=== PATIENT | female | born 1995 | race Caucasian/White ===

== ENCOUNTER 2017-03-30 05:33 | Emergency (ER) | payer OTHER ==
[2017-03-30 06:20] LABS: BASOPHIL 0.2 % (0-2); EOSINOPHIL 2.2 % (0-5); HCT 44.6 % (37.0-47.0); HGB 15.3 g/dl (12.5-16.0); LYMPHOCYTE 20.8 % (15-48); MCH 30.9 pg (25.0-31.0); MCHC 34.3 g/dL (32.0-36.0); MCV 90.1 fL (78.0-100.0); MONOCYTE 5.7 % (0-12); MPV 10.2 fL (6.0-9.5); NEUTROPHIL 71.1 % (41-80); PLT 325 K/uL (150-400); RBC 4.95 M/uL (4.20-5.40)
[2017-03-30 06:40] LABS: ALBUMIN 4.6 g/dL (3.5-5.0); BILIRUBIN - TOTAL 0.3 mg/dL (0.1-1.0); CREATININE 0.7 mg/dL (0.5-1.0); GLOBULIN (CALCULATION) 2.4 g/dL (2.2-4.2); POTASSIUM 3.8 mmol/L (3.5-5.1)
== END 2017-03-30 06:55 | disposition home or self-care (01) ==
LOC: FER 05:33
PROVIDERS: Emergency Medicine
DX: O03.9 Complete or unspecified spontaneous abortion without complication (principal); O99.331 Smoking (tobacco) complicating pregnancy, first trimester; Z3A.01 Less than 8 weeks gestation of pregnancy
CPT/HCPCS: 36415; 80053; 84702; 84703; 85025; 86900; 86901; 99284

== ENCOUNTER 2017-04-01 07:27 | Emergency (ER) | payer OTHER ==
[2017-04-01 08:17] LABS: BILIRUBIN NEGATIVE (NEGATIVE); BLOOD 3+ Ery/uL (NEGATIVE); CLARITY HAZY (CLEAR); COLOR YELLOW (YELLOW); GLUCOSE (U) NORMAL (NORMAL); KETONE (U) NEGATIVE (NEGATIVE); LEUKOCYTES NEGATIVE Leu/uL (NEGATIVE); NITRITE NEGATIVE (NEGATIVE); PROTEIN 1+ mg/dL (NEGATIVE); SPECIFIC GRAVITY 1.015 (1.001-1.030); UROBILINOGEN 0.2 mg/dL (0.2-1.0); pH 6.5 (5.0-9.0)
[2017-04-01 08:19] LABS: AMORPHOUS URATES CRYSTALS TRACE; BACTERIA TRACE; URINARY RBC RARE; URINARY WBC RARE
[2017-04-01 08:27] LABS: BASOPHIL 0.1 % (0-2); EOSINOPHIL 3.8 % (0-5); HCT 43.6 % (37.0-47.0); HGB 15.1 g/dl (12.5-16.0); LYMPHOCYTE 28.6 % (15-48); MCH 31.5 pg (25.0-31.0); MCHC 34.6 g/dL (32.0-36.0); MONOCYTE 6.3 % (0-12); MPV 10.3 fL (6.0-9.5); NEUTROPHIL 61.2 % (41-80); PLT 317 K/uL (150-400); RBC 4.79 M/uL (4.20-5.40); WBC 9.3 K/uL (4.0-10.5)
[2017-04-01 08:47] LABS: ALBUMIN 4.2 g/dL (3.5-5.0); BILIRUBIN - TOTAL 0.2 mg/dL (0.1-1.0); CREATININE 0.6 mg/dL (0.5-1.0); GLOBULIN (CALCULATION) 2.3 g/dL (2.2-4.2); POTASSIUM 4.1 mmol/L (3.5-5.1); TOTAL PROTEIN 6.5 g/dL (6.4-8.3)
== END 2017-04-01 09:03 | disposition home or self-care (01) ==
LOC: FER 07:27
PROVIDERS: Emergency Medicine
DX: O03.9 Complete or unspecified spontaneous abortion without complication (principal); Z3A.01 Less than 8 weeks gestation of pregnancy
CPT/HCPCS: 36415; 80053; 81001; 84702; 85025; 99284

== ENCOUNTER 2021-08-20 06:05 | Emergency (ER) | payer OTHER ==
[2021-08-20] MEDS ORDERED: AMOXICILLIN500 MG PO (07:30)
== END 2021-08-20 07:40 | disposition home or self-care (01) ==
LOC: FER 06:05
DX: H66.91 Otitis media, unspecified, right ear (principal); H72.2X1 Other marginal perforations of tympanic membrane, right ear; E66.9 Obesity, unspecified
CPT/HCPCS: 99282

== ENCOUNTER 2022-06-11 07:23 | Emergency (ER) | payer OTHER ==
[~2022-06-11 07:23] MED LIST: AMOXICILLIN500 MG PO
[2022-06-11] MEDS ORDERED: NAPROXEN500 MG PO (07:55)
== END 2022-06-11 08:20 | disposition home or self-care (01) ==
LOC: FER 07:23
DX: M79.602 Pain in left arm (principal); F17.210 Nicotine dependence, cigarettes, uncomplicated; Z28.310 Unvaccinated for COVID-19
CPT/HCPCS: 99283